=== PATIENT | female | born 1940 | race Caucasian/White ===

== ENCOUNTER 2017-11-13 15:16 | Emergency (ER) | payer MEDICARE, BC | END 2017-11-13 16:55 | disposition left against medical advice (07) | LOC: JP.ED 15:16 | DX: Z53.20 Procedure and treatment not carried out because of patient's decision for unspecified reasons (principal) ==

== ENCOUNTER 2020-05-29 14:13 | Emergency (ER) | payer MEDICARE, BC ==
--- NOTE | 2020-05-29 15:20 | CR ---
Wrist Comp Min 3V Rt CLINICAL HISTORY: Fall FINDINGS: There are moderate osteoarthritic changes throughout the wrist as well as the first carpometacarpal junction. There is calcification of the triangular fibrocartilage. There is a small irregular ossific density dorsal to the mid carpal row with some associated soft tissue swelling. A small avulsion here is not excluded. Impression: Advanced osteoarthritic change Small ossific density in the dorsal wrist could represent a small avulsion
--- NOTE | 2020-05-29 15:32 | EDM.PDOC ---
ED HPI GENERAL MEDICAL PROBLEM - General Chief Complaint: Upper Extremity Injury/Pain Stated Complaint: RIGHT HAND/FELL Time Seen by Provider: 05/29/20 14:48 Source of Information: Reports: Patient, Family History Limitations: Reports: Physical Impairment - History of Present Illness INITIAL COMMENTS - FREE TEXT/NARRATIVE: 80-year-old female presents emergency department a complaint of right wrist pain she fell yesterday unfortunately she has significant dementia cannot describe any mechanism at action of family members believe it was a fall on outstretched hand she denies any pain over her wrist - Related Data Allergies Allergy/AdvReac Type Severity Reaction Status Date / Time No Known Allergies Allergy Verified 05/29/20 14:32 Home Meds: Home Meds Multivitamin [Multivitamins] 1 each PO DAILY 02/06/18 [History] Apixaban [Eliquis] 5 mg PO DAILY 05/29/20 [History] Past Medical History HEENT History: Reports: Impaired Vision Cardiovascular History: Reports: Blood Clots/VTE/DVT Gastrointestinal History: Reports: None [employer] History: Reports: Musculoskeletal History: Reports: None Neurological History: Reports: Other (See Below) Other Neuro History: patient has short term memory loss Psychiatric History: Reports: Dementia - Infectious Disease History Infectious Disease History: Reports: Chicken Pox, Measles - Past Surgical History Head Surgeries/Procedures: Reports: None HEENT Surgical History: Reports: Adenoidectomy, Tonsillectomy GI Surgical History: Reports: Colonoscopy Musculoskeletal Surgical History: Reports: Arthroscopic Knee, Knee Replacement, Other (See Below) Other Musculoskeletal Surgeries/Procedures:: ankle surgery, right Dermatological Surgical History: Reports: None Social & Family History - Tobacco Use Tobacco Use Status *Q: Never Tobacco User - Caffeine Use Caffeine Use: Reports: Coffee - Recreational Drug Use Recreational Drug Use: No Review of Systems - Review of Systems Review Of Systems: See Below Musculoskeletal: Reports: Joint Pain ED EXAM, GENERAL - Physical Exam Exam: See Below Free Text/Narrative:: Examination of the right wrist there is bruising over the dorsal surface of the wrist she has full range of motion radial pulses +2 there is some point tenderness over the ulnar styloid process Course - Vital Signs Last Recorded V/S: Last Vital Signs Temp 96.7 F L 05/29/20 14:35 Pulse 100 05/29/20 14:35 Resp 12 05/29/20 14:35 BP 149/64 H 05/29/20 14:35 Pulse Ox 96 05/29/20 14:35 Departure - Departure Time of Disposition: 15:30 Disposition: Home, Self-Care 01 Condition: Fair Clinical Impression: Right wrist pain - Discharge Information Instructions: Wrist Pain, Adult Referrals: Audie Laurent MD [Primary Care Provider] - Additional Instructions: Continue to use your wrist splint for comfort, Tylenol Motrin as needed for pain control, please follow-up with orthopedics next week Sepsis Event Note (ED) - Evaluation Sepsis Screening Result: No Definite Risk - Focused Exam Vital Signs: Vital Signs Temp Pulse Resp BP Pulse Ox 05/29/20 14:35 96.7 F L 100 12 149/64 H 96 - Assessment/Plan Plan: Assessment Acuity = acute Site and laterality = right wrist pain Etiology = fall on outstretched hand Manifestations = none Location of injury = Home Lab values = x-ray reveals no obvious fracture however radiology is questioning whether there is a small avulsion fracture Plan She is placed in a Velcro wrist splint plan to follow-up with orthopedics next week Tylenol and Motrin as needed for pain This note was dictated using [email or web address] recognition software please call with any questions on syntax or grammar.
== END 2020-05-29 15:39 | disposition home or self-care (01) ==
LOC: JP.ED 14:13
DX: M25.531 Pain in right wrist (principal); F03.90 Unspecified dementia, unspecified severity, without behavioral disturbance, psychotic disturbance, mood disturbance, and anxiety; Z86.718 Personal history of other venous thrombosis and embolism; Z79.01 Long term (current) use of anticoagulants; W18.30XA Fall on same level, unspecified, initial encounter
CPT/HCPCS: 73110-26-RT; 73110-RT; 99283-25

== ENCOUNTER 2021-12-06 18:14 | Emergency (ER) | payer MEDICARE, BC | END 2021-12-06 20:00 | disposition home or self-care (01) | LOC: JP.ED 18:14 | DX: S60.416A Abrasion of right little finger, initial encounter (principal); Z79.01 Long term (current) use of anticoagulants; W18.30XA Fall on same level, unspecified, initial encounter | CPT/HCPCS: 99282; 99283 ==